=== PATIENT | female | born 1965 | race Caucasian/White ===

== ENCOUNTER 2018-11-01 11:42 | Emergency (ER) | payer SELFPAY ==
[2018-11-01 11:49] VITALS: BP 187/108
[2018-11-01] MEDS ORDERED: AMOXICILLIN TRIHYDRATE 500 MG CAPSULE PO ONE (12:25)
[2018-11-01] MEDS ORDERED: LISINOPRIL 10 MG TABLET PO ONE (12:25)
--- NOTE | 2018-11-01 12:29 | ER Document Report ---
ED Medical Screen (RME) - General Chief Complaint: High Blood Pressure Stated Complaint: BLOOD PRESSURE PROBLEMS Time Seen by Provider: 11/01/18 12:15 TRAVEL OUTSIDE OF THE [place] IN LAST 30 DAYS: No - HPI Onset: Other - This woman with hypertension who is lost care, previously it stopped smoking and been doing well but ran out of her medications several months ago and dealing with the stresses of her brothers mental health problems she has begun to smoke again stopped exercising and noted her blood pressure has been increasing. She also is over the last week had worsening swelling in her left lower jaw which she is been unable to follow-up for. - Related Data Allergies/Adverse Reactions: No Known Allergies Allergy (Verified 11/01/18 11:43) Past Medical History - Social History Frequency of alcohol use: None Drug Abuse: None - Past Medical History Cardiac Medical History: Reports: Hx Hypertension Neurological Medical History: Reports: Hx Migraine Renal/ Medical History: Denies: Hx Peritoneal Dialysis Physical Exam - Vital signs Vitals: Temp Pulse Resp BP Pulse Ox 99.0 F 97 18 187/108 H 98 11/01/18 11:47 11/01/18 11:47 11/01/18 11:47 11/01/18 11:47 11/01/18 11:47 Course - Vital Signs Vital signs: Temp Pulse Resp BP Pulse Ox 99.0 F 97 18 187/108 H 98 11/01/18 11:47 11/01/18 11:47 11/01/18 11:47 11/01/18 11:47 11/01/18 11:47 Doctor's Discharge - Discharge Clinical Impression: Hypertension Qualifiers: Hypertension type: unspecified Qualified Code(s): I10 - Essential (primary) hypertension Condition: Good Disposition: HOME, SELF-CARE Instructions: Angiotensin Converting Enzyme Inhibitor Medication ([facility]), High Blood Pressure ([facility]), High Blood Pressure, Requiring Treatment ([facility]), Toothache ([facility]) Additional Instructions: You were seen today in the emergency department for the swelling in her mouth as well as your high blood pressure. You had evaluation including a physical exam. You have been started on antibiotic to help with the swelling and abscess in her mouth. You have been given a medication to use for your blood pressure. You should follow-up at 1 of the doctors that I have referred you to. You have been given a referral to a dental clinic as well to help with that. Prescriptions: Amoxicillin 1 tab PO TID #30 tab Lisinopril [Prinivil 10 mg Tablet] 10 mg PO DAILY #30 tablet Referrals: [facility] [Provider Group] - Follow up as needed [facility] [Provider Group] - Follow up as needed
== END 2018-11-01 12:43 | disposition home or self-care (01) ==
LOC: ER 11:42
DX: I10 Essential (primary) hypertension (principal); T50.2X6A Underdosing of carbonic-anhydrase inhibitors, benzothiadiazides and other diuretics, initial encounter; Z91.128 Patient's intentional underdosing of medication regimen for other reason; Z91.14 Patient's other noncompliance with medication regimen; K04.7 Periapical abscess without sinus; F17.200 Nicotine dependence, unspecified, uncomplicated
CPT/HCPCS: 99283

== ENCOUNTER 2019-03-04 11:48 | Emergency (ER) | payer SELFPAY ==
--- NOTE | 2019-03-04 12:15 | ER Document Report ---
ED Medical Screen (RME) - General Chief Complaint: Dog Bite Stated Complaint: DOG BITE Time Seen by Provider: 03/04/19 12:10 Mode of Arrival: Ambulatory Information source: Patient Notes: Patient presents to the emergency department with complaints of left hand dog bite. Patient reports her dog bit her. Reports shots are up-to-date. Reports tetanus was within the last 4 years. Patient took Tylenol at home declines further pain medication. Laceration to left thumb. Patient reports decreased range of motion. No active bleeding I have greeted and performed a rapid initial assessment of this patient. A comprehensive ED assessment and evaluation of the patient, analysis of test results and completion of the medical decision making process will be conducted by additional ED providers. Dictation of this chart was performed using voice recognition software; therefore, there may be some unintended grammatical errors. TRAVEL OUTSIDE OF THE [place] IN LAST 30 DAYS: No - Related Data Allergies/Adverse Reactions: No Known Allergies Allergy (Verified 03/04/19 11:51) Past Medical History - Past Medical History Cardiac Medical History: Reports: Hx Hypertension Neurological Medical History: Reports: Hx Migraine Renal/ Medical History: Denies: Hx Peritoneal Dialysis Physical Exam - Vital signs Vitals: Temp Pulse Resp BP Pulse Ox 97.8 F 106 H 14 155/107 H 96 03/04/19 11:56 03/04/19 11:56 03/04/19 11:56 03/04/19 11:56 03/04/19 11:56 Course - Vital Signs Vital signs: Temp Pulse Resp BP Pulse Ox 97.8 F 106 H 14 155/107 H 96 03/04/19 11:56 03/04/19 11:56 03/04/19 11:56 03/04/19 11:56 03/04/19 11:56
--- NOTE | 2019-03-04 14:38 | RADIOLOGY REPORT (SQ) ---
EXAM DESCRIPTION: HAND LEFT 3 VIEWS COMPLETED DATE/TIME: 03/04/2019 1:12 pm REASON FOR STUDY: dog bite COMPARISON: None. EXAM PARAMETERS: NUMBER OF VIEWS: Three views. TECHNIQUE: AP, lateral and oblique radiographic images acquired of the left hand. LIMITATIONS: None. FINDINGS: MINERALIZATION: Normal. BONES: No acute fracture or dislocation. No worrisome bone lesions. JOINTS: No effusions. SOFT TISSUES: Diffuse swelling. No foreign body. OTHER: No other significant finding. IMPRESSION: Soft tissue injury. TECHNICAL DOCUMENTATION: JOB ID: [id number] [employer]- All Rights Reserved Reading location - IP/workstation name: [email or web address]
[2019-03-04] MEDS ORDERED: LIDOCAINE 1% INJ-PF (10 MG/ML) 30 ML SDV INJ ONE (15:02)
--- NOTE | 2019-03-04 15:14 | ER Document Report ---
HPI - HPI Time Seen by Provider: 03/04/19 12:10 Pain Level: 4 Notes: Patient is a well-appearing 53-year-old female who presents to the ED after dog bite this morning around 10 AM. Patient reports that she was trying to break up her own dogs and 1 of them accidentally bit her left thumb. Patient reports she had a tetanus in 2016 and her dogs are both up-to-date on the rabies vaccines. Patient is otherwise healthy she has a history of high blood pressure controlled with lisinopril. She is able to move all of her extremities, without paresthesias or weakness in her hand. Denies any headache, fever, head injury, neck pain, chest pain, palpitations, syncope, cough, shortness of breath, wheeze, dyspnea, abdominal pain, nausea/vomiting/diarrhea, - REPRODUCTIVE Reproductive: DENIES: : Past Medical History - General Information source: Patient - Social History Smoking Status: Current Every Day Smoker Cigarette use (# per day): Yes - 10 Chew tobacco use (# tins/day): No Smoking Education Provided: Yes Frequency of alcohol use: Rare Drug Abuse: None Family History: Reviewed & Not Pertinent Patient has suicidal ideation: No Patient has homicidal ideation: No - Past Medical History Cardiac Medical History: Reports: Hx Hypertension Neurological Medical History: Reports: Hx Migraine Renal/ Medical History: Denies: Hx Peritoneal Dialysis Vertical Provider Document - CONSTITUTIONAL Notes: PHYSICAL EXAMINATION: GENERAL: Well-appearing, well-nourished and in no acute distress. HEAD: Atraumatic, normocephalic. LUNGS: Breath sounds clear to auscultation bilaterally and equal. No wheezes rales or rhonchi. HEART: Regular rate and rhythm without murmurs, rubs, gallops. Musculoskeletal: FROM to passive/active. Strength 5+/5. Extremities: No cyanosis, clubbing, or edema b/l. Peripheral pulses 2+. Capillary refill less than 3 seconds. 2cm laceration of proximal medial aspect of left thumb. + puncture wounds on left hand. NEUROLOGICAL: Sensation and motor strength of left hand intact. PSYCH: Normal mood, normal affect. SKIN: Warm, Dry, normal turgor, no rashes or lesions noted. - INFECTION CONTROL TRAVEL OUTSIDE OF THE [place] IN LAST 30 DAYS: No Course - Re-evaluation Re-evalutation: 03/04/19 Patient is an afebrile, well-hydrated, 53-year-old female who presents to the ED with a laceration to her left thumb proximolaterally. Vitals are acceptable. PE is otherwise unremarkable for any neurovascular compromise, obvious tendon/ligament rupture, obvious fracture/dislocation, septic joint, retained foreign body. XR unremarkable. Patient is nontoxic-appearing and is tolerating p.o. without difficulties. Thoroughly reviewed risk/benefit of rabies series. Pt declined at this time. Dog's immuniz are utd and are their own. They will monitor. Wound was thoroughly irrigated and cleansed. Wound edges were loosely approximated appropriately utilizing 3 simple interrupted sutures. Wound dressing was placed and wound instructions reviewed. Patient tolerated procedure well without any complications. Tetanus utd. No further labs or imaging warranted. Sutures will need removed in 10 days. Recheck with your PCM in 2-3 days. Consider consult orthopedics if needed. Rx for augmentin. Return to the ED with any worsening/concerning symptoms otherwise as reviewed in discharge. Patient is in agreement. - Vital Signs Vital signs: Temp Pulse Resp BP Pulse Ox 97.8 F 106 H 14 155/107 H 96 03/04/19 11:56 03/04/19 11:56 03/04/19 11:56 03/04/19 11:56 03/04/19 11:56 Procedures - Laceration/Wound Repair Left Thumb Wound length (cm): 2 Wound's Depth, Shape: Superficial, Irregular, Other - bite/lac Laceration pre-procedure: Sterile PPE donned, Sterile drapes applied, Other - chlorhexadine/saline Anesthetic type: 1% Lidocaine Volume Anesthetic (mLs): 5 Wound explored: No foreign body removed, Contaminated Irrigated w/ Saline (mLs): 400 Wound Debrided: Minimal Wound Repaired With: Sutures Suture Size/Type: 4:0, Nylon Number of Sutures: 3 - loose closure* Layer Closure?: No Post-procedure wound care: Sterile dressing applied Post-procedure NV exam normal: Yes Complications: No Discharge - Discharge Clinical Impression: Dog bite Qualifiers: Encounter type: initial encounter Qualified Code(s): W54.0XXA - Bitten by dog, initial encounter Condition: Stable Disposition: HOME, SELF-CARE Instructions: Animal Bites ([facility]) Additional Instructions: Do not shower or bathe for 24 hours. After 24 hours you may shower but no submersion of the wound under water. Keep the original dressing on the wound for 24 hours unless the drainage soaks through. Change the dressing daily thereafter and keep the knots of the suture material clean from any dried discharge. You may leave the wound open to the air once there is no more discharge. Return to the ED and/or your PCM in 2-3 days for a recheck. Monitor for any signs of worsening pain or redness, purulent drainage, streaks, and/or fever. Return to the ED if noticing any of the above symptoms or as needed. Take medications as directed. Your sutures will need to be removed in 10 days. Prescriptions: Amox Tr/Potassium Clavulanate [Augmentin 875-125 Tablet] 1 tab PO BID 10 Days #20 tablet Forms: Elevated Blood Pressure, Smoking Cessation Education Referrals: [facility] [Provider Group] - Follow up as needed
[2019-03-04 16:16] VITALS: BP 163/102
== END 2019-03-04 16:15 | disposition home or self-care (01) ==
LOC: ER 11:48
DX: S61.052A Open bite of left thumb without damage to nail, initial encounter (principal); W54.0XXA Bitten by dog, initial encounter; Y92.009 Unspecified place in unspecified non-institutional (private) residence as the place of occurrence of the external cause; F17.210 Nicotine dependence, cigarettes, uncomplicated
CPT/HCPCS: 99283; 73130; 12001; J3490